=== PATIENT | female | born 1965 | race Caucasian/White ===

== ENCOUNTER 2017-12-02 10:30 | Outpatient (RCR) | payer OTHER ==
[~2017-12-02 10:30] MED LIST: SILV20CR2 TP
[2017-12-02] MEDS ORDERED: TAMO20TA24 PO (14:05)
== END 2017-12-21 15:07 | disposition home or self-care (01) ==
LOC: RAON 10:30
PROVIDERS: ATTEND Radiology Radiation Oncology
DX: Z51.0 Encounter for antineoplastic radiation therapy (principal); C50.412 Malignant neoplasm of upper-outer quadrant of left female breast; Z17.0 Estrogen receptor positive status [ER+]; E03.9 Hypothyroidism, unspecified; Z78.0 Asymptomatic menopausal state
CPT/HCPCS: 77336; 77412; 99212

== ENCOUNTER 2018-02-01 12:54 | Outpatient (RCR) | payer OTHER ==
[~2018-02-01 12:54] MED LIST changes: +TAMO20TA24 PO
[2018-02-01] MEDS ORDERED: CHOL200021 PO (13:22)
[2018-02-01] MEDS ORDERED: LEVO125T6 PO (13:22)
[2018-02-01] MEDS ORDERED: GLUC-111 PO (13:22)
[2018-02-02] MEDS ORDERED: SALM1CAP3 PO (08:55)
== END 2018-02-11 14:18 | disposition home or self-care (01) ==
LOC: RAON 12:54
PROVIDERS: ATTEND Radiology Radiation Oncology
DX: Z08 Encounter for follow-up examination after completed treatment for malignant neoplasm (principal); Z85.3 Personal history of malignant neoplasm of breast; Z92.3 Personal history of irradiation; E03.9 Hypothyroidism, unspecified; M25.551 Pain in right hip
CPT/HCPCS: 99212

== ENCOUNTER 2018-09-27 11:53 | Outpatient (RCR) | payer OTHER ==
[~2018-09-27 11:53] MED LIST changes: +CHOL200021 PO; +GLUC-111 PO; +LEVO125T6 PO; +SALM1CAP3 PO
[2018-09-27 12:10] VITALS: BP 143/91
[2018-09-27 12:34] LABS: PLATELET COUNT, AUTOMATED 209 K/uL (150-450)
--- NOTE | 2018-09-28 04:48 | ONCOLOGY FOLLOW UP NOTE ---
EVENT DATE: September 27, 2018 REASON FOR VISIT Oncology surveillance; known history of breast carcinoma. ONCOLOGY HISTORY 1. History of invasive ductal carcinoma with features, measuring 0.9 cm, patient undergoing a lumpectomy and sentinel lymph node procedure in 05/2017. Tumor was ER and NC receptor positive, low Ki-67 of 15. 2. Patient received postoperative external beam radiation therapy of 5040 cGy in 20 fractions to the left breast, with a boost to the quadrant of excision of additional 1000 cGy in 5 fractions. INTERVAL HISTORY Sophia was seen for oncology surveillance appointment. Clinically doing well. She denies any new or persistent breast or bone pain. She does intermittently have some left hip pain, which she relates to prior trauma. Her last mammogram was obtained at [facility] 06/2018. She had a same-day visit with Dr. Avina, and she is seen on an alternating basis with Dr. Plummer with the oncology clinic in [place]. Prior to this appointment, the patient had a CBC and metabolic panel, which I reviewed with her from [facility], which are normal. Patient completed her radiation therapy program 10/18/17, so she is approximately a year remote from therapy. She lives in [place], and she is accompanied by her today for followup appointment. She is tolerating tamoxifen well at 20 mg daily, without any significant adverse effects. PAST MEDICAL HISTORY 1. Left-sided breast carcinoma with history listed above. 2. History of arthritic left hip pain. 3. History of hypothyroidism. PAST SURGICAL HISTORY 1. Right ovary removal, 10/1986. 2. Prior tonsillectomy. 3. Previous lumpectomy and left breast sentinel lymph node procedure followed by radiation therapy. MEDICATIONS 1. Levothyroxine. 2. Glucosamine capsules. 3. [place] oil. 4. Tamoxifen 20 mg a day. 5. Vitamin D. ALLERGIES None. SOCIAL HISTORY Nonsmoker. Social alcohol use. with two children. Paternal great grandmother who had gastric carcinoma. REVIEW OF SYSTEMS Comprehensive review of systems essentially negative with the exception of the left hip pain. She occasionally has noted intermittent discomfort over the sternum, but nothing specific today. In the past she has had some tenderness at the lumpectomy site, but that resolved with ibuprofen trial. PHYSICAL EXAMINATION GENERAL: A pleasant 52-year-old female, medium build. VITAL SIGNS: Blood pressure 143/91, pulse 64, respirations 14, O2 saturation 92%, weight 198. LYMPHATIC: No peripheral lymphadenopathy. LUNGS: Clear bilaterally. CARDIOVASCULAR: Heart sounds regular. BREASTS: Careful right and left breast examination reveals no suspicious stone or mass. There is minor tenderness on deep palpation of right and left breasts, but nothing specific. No axillary lymphadenopathy. No gross organomegaly. Excellent cosmetic result. NEUROLOGIC: Exam intact. IMPRESSION Overall, the patient is clinically doing well. She is now a year remote from therapeutic interventions for stage I left-sided breast carcinoma. She appears to have responded nicely to the surgery and radiation program and is tolerating tamoxifen well overall. Blood work is normal today. PLAN Patient will follow up with [facility] providers at the time of her next scheduled mammogram. The latter is being performed in [place] in a same-day visit. I will tentatively see her in a year with updated CBC and metabolic panel. I would be happy to see her sooner if she is having any specific problems or needs. All questions answered to her satisfaction over a 40-minute appointment today. Continue followup with Dr. Plummer and Dr. Avina per schedule. Patient sees Dr. Pedroza for primary medical needs in [place]. [facility]
== END 2018-10-05 12:45 | disposition home or self-care (01) ==
LOC: RAON 11:53
PROVIDERS: ATTEND Radiology Radiation Oncology
DX: Z08 Encounter for follow-up examination after completed treatment for malignant neoplasm (principal); Z85.3 Personal history of malignant neoplasm of breast; Z92.3 Personal history of irradiation; E03.9 Hypothyroidism, unspecified; M25.551 Pain in right hip
CPT/HCPCS: 36415; 82040; 82247; 82306; 82310; 82374; 82435; 82565; 82947; 84075; 84132; 84155; 84295; 84450; 84460; 84520; 85025; 99212